=== PATIENT | female | born 1960 ===

== ENCOUNTER 2020-06-14 05:06 | Day surgery (SDC) | payer OTHER ==
[~2020-06-14 05:06] MED LIST: CLONAZE PO; CLONAZEPAM0.5 MG PO; EFFEXOR PO
== END 2020-06-14 14:35 | disposition home or self-care (01) ==
LOC: CIR.AMB 05:06
PROVIDERS: ATTEND Colon & Rectal Surgery
DX: K64.8 Other hemorrhoids (principal); K64.4 Residual hemorrhoidal skin tags; Z20.822 Contact with and (suspected) exposure to COVID-19